=== PATIENT | male | born 1960 | race Caucasian/White ===

== ENCOUNTER 2022-02-15 11:13 | Emergency (ER) | payer OTHER, SELFPAY ==
[2022-02-15 11:29] VITALS: BP 171/87; PULSE 64; RESP 16; TEMP 36.2; O2SAT 96
--- NOTE | 2022-02-15 11:43 | ED.GENADULT ---
HPI - General Adult General Chief complaint: Wound/Laceration Stated complaint: DROVE A STAKE THROUGH HAND Time Seen by Provider: 02/15/22 11:34 History of Present Illness HPI narrative: The patient is a 61-year-old male who was blowing leaves in the yard whereby he lost his balance and fell down on metal portion of a yard aerator, resulting in a puncture wound in the center aspect of his left palm. He has no loss of motor or sensory function. no other injuries except a minor abrasion on the right elbow. Ambulatory. He is on Xarelto for possible prior stroke as well as blood pressure medications. His last tetanus was less than 10 years ago. Does have bilateral total knee arthroplasties. Related Data Home Medications Medication Instructions Recorded Confirmed clopidogrel 75 mg tablet 75 mg PO DAILY 02/15/22 02/15/22 escitalopram oxalate 10 mg tablet 10 mg PO DAILY 02/15/22 02/15/22 hydrochlorothiazide 25 mg tablet 25 mg PO DAILY 02/15/22 02/15/22 losartan 100 mg tablet 100 mg PO DAILY 02/15/22 02/15/22 rosuvastatin 40 mg tablet 40 mg PO DAILY 02/15/22 02/15/22 Allergies Allergy/AdvReac Type Severity Reaction Status Date / Time No Known Allergies Allergy Unverified 08/06/17 11:44 Review of Systems Review of Systems: All systems reviewed & are unremarkable except as noted in HPI and below Constitutional: Constitutional: Reports no additional constitutional complaints, Denies anorexia, Denies body ache(s), Denies chills, Denies excessive sweating, Denies fatigue, Denies fever(s), Denies frequent falls, Denies headache(s), Denies malaise and Denies poor appetite Eyes: Eyes: Reports no additional eye complaints, Denies blurry vision, Denies change in vision, Denies irritation, Denies itchy eyes and Denies photophobia ENT: Reports system reviewed and no additional complaints, except as documented, Reports Normal hearing present, Denies change in voice, Denies dysphagia, Denies vertigo, Denies dizziness, Denies ear discharge, Denies headache(s), Denies hearing loss, Denies hoarseness, Denies nasal congestion, Denies neck pain, Denies sinus pressure, Denies sore throat and Denies throat swelling Cardiovascular: Cardiovascular: Reports no additional cardiovascular complaints, Denies chest pain, Denies syncope, Denies rapid heart rate, Denies irregular heart rhythm, Denies leg edema, Denies dyspnea and Denies slow heart rate Respiratory: Respiratory: Reports no additional respiratory complaints, Denies cough, Denies dyspnea, Denies stridor and Denies wheezing Gastrointestinal: Gastrointestinal: Reports no additional gastrointestinal complaints, Denies abdominal pain, Denies melena, Denies hematochezia, Denies dysphagia, Denies diarrhea, Denies nausea and Denies vomiting Genitourinary: Genitourinary: Denies hematuria, Denies oliguria, Denies dysuria, Denies flank pain, Denies urinary frequency and Denies urinary urgency Musculoskeletal: Musculoskeletal: Reports no additional musculoskeletal complaints, Denies abnormal gait, Denies back pain, Denies myalgias, Denies arthralgias, Denies joint swelling, Denies limited range of motion, Denies muscle cramps, Denies muscle weakness, Denies neck pain and Denies numbness Integumentary/Breasts: Skin/Breast: Reports system reviewed and no additional complaints, except as docu, Denies breast pain, Denies change in pigmentation, Denies pruritus, Denies erythema and Reports wounds Neurologic: Reports system reviewed and no additional complaints, except as documented, Reports Normal hearing present, Denies Abnormal speech present, Denies abnormal gait, Denies confusion, Denies vertigo, Denies dizziness, Denies syncope, Denies frequent falls, Denies headache(s), Denies focal weakness, Denies numbness and Denies paresthesias Psychiatric: Psychiatric: Reports no additional psychiatric complaints and Denies confusion Endocrine: Endocrine: Reports no additional endocrine complaints, Denies cold intoleranc
[2022-02-15] MEDS: LIDOCAINE HCL 1% LOCAL INJ 10 ML VIAL (11:49)
[2022-02-15] MEDS: ACETAMINOPHEN 500 MG TABLET 1000 MG PO (11:50)
[2022-02-15] MEDS: CEPHALEXIN 500 MG CAPSULE PO (11:50)
[2022-02-15 12:40] VITALS: BP 162/77; PULSE 62; RESP 16; TEMP 36.2; O2SAT 97
== END 2022-02-15 12:42 | disposition home or self-care (01) ==
LOC: CHSED 12:19
PROVIDERS: Emergency Provider Emergency Medicine
DX: S61.412A Laceration without foreign body of left hand, initial encounter (principal); W01.118A Fall on same level from slipping, tripping and stumbling with subsequent striking against other sharp object, initial encounter; Z79.02 Long term (current) use of antithrombotics/antiplatelets
CPT/HCPCS: 12001; 99283; A9270

== ENCOUNTER 2022-02-17 09:54 | Emergency (ER) | payer OTHER, SELFPAY ==
--- NOTE | ~2022-02-17 | XR_ITS ---
EXAMINATION: XR hand LT min 3V DATE: 02/17/2022 10:53 INDICATION: Left hand laceration. TECHNIQUE: 3 views of left hand were obtained. COMPARISON: None. FINDINGS: Bone alignment is normal. No fracture. There is mild osteoarthritis of first carpometacarpa l joint, first and second metacarpophalangeal joints, and many of the interphalangeal joints. No radi opaque foreign body. IMPRESSION: 1. Mild polyarticular osteoarthritis. Reviewed, dictated and finalized at location A. GING BROKER
[2022-02-17 09:57] VITALS: BP 156/93; PULSE 71; RESP 18; TEMP 36.4; O2SAT 94
[2022-02-17 10:58] LABS: Basophils Absolute Auto 0.04 K/mm3 (0.00-0.10); Basophils Percent Auto 0.6 % (0.0-1.0); Eosinophils Absolute Auto 0.17 K/mm3 (0.02-0.50); Eosinophils Percent Auto 2.7 % (1.0-6.0); Hematocrit 40.3 % (40.0-54.0); Hemoglobin 13.9 g/dL (14.0-18.0); Immature Granulocyte Absolute 0.03 K/mm3 (0.00-0.00); Immature Granulocyte Percent A 0.5 % (0.0-0.0); Lymphocytes Absolute Auto 1.43 K/mm3 (1.10-4.50); Lymphocytes Percent Auto 22.7 % (18.0-42.0); Mean Corpuscular HGB Conc 34.5 g/dL (32.0-36.0); Mean Corpuscular Hemoglobin 28.5 pg (27.0-31.0); Mean Corpuscular Volume 82.8 fL (78.0-102.0); Mean Platelet Volume 10.1 fl (8.7-11.0); Monocytes Absolute Auto 0.57 K/mm3 (0.10-0.90); Monocytes Percent Auto 9.1 % (2.0-11.0); Neutrophils Absolute Auto 4.1 K/mm3 (1.7-7.2); Neutrophils Percent Auto 64.4 % (50.0-70.0); Platelet Count Result 177 K/mm3 (150-420); Red Blood Count 4.87 M/mm3 (4.70-6.10); Red Cell Distribution Width 13.2 % (11.6-14.4); White Blood Count 6.3 K/mm3 (4.8-10.8)
--- NOTE | 2022-02-17 11:09 | ED.GENADULT ---
HPI - General Adult General Chief complaint: Wound/Laceration Stated complaint: left hand cut swelling and sore Time Seen by Provider: 02/17/22 10:31 History of Present Illness HPI narrative: the patient is a 61-year-old male who sustained a small puncture wound in his left hand 2 days ago, in 02/15/2022. I had seen him at that time. He received Keflex prophylactic antibiotics. The wound was closed with 2 sutures. He is currently on Keflex for a total of 5 days. 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 He comes back due to concern about his wound. There is redness in the left palm which is concerning for him. No drainage. He has been taking his Keflex. Tenderness is minimal. Related Data Home Medications Medication Instructions Recorded Confirmed clopidogrel 75 mg tablet 75 mg PO DAILY 02/15/22 02/17/22 escitalopram oxalate 10 mg tablet 10 mg PO DAILY 02/15/22 02/17/22 hydrochlorothiazide 25 mg tablet 25 mg PO DAILY 02/15/22 02/17/22 losartan 100 mg tablet 100 mg PO DAILY 02/15/22 02/17/22 rosuvastatin 40 mg tablet 40 mg PO DAILY 02/15/22 02/17/22 Allergies Allergy/AdvReac Type Severity Reaction Status Date / Time No Known Allergies Allergy Unverified 08/06/17 11:44 Review of Systems Review of Systems: All systems reviewed & are unremarkable except as noted in HPI and below Constitutional: Constitutional: Reports no additional constitutional complaints, Denies anorexia, Denies body ache(s), Denies chills, Denies excessive sweating, Denies fatigue, Denies fever(s), Denies frequent falls, Denies headache(s), Denies malaise and Denies poor appetite Eyes: Eyes: Reports no additional eye complaints, Denies blurry vision, Denies change in vision, Denies irritation, Denies itchy eyes and Denies photophobia ENT: Reports system reviewed and no additional complaints, except as documented, Reports Normal hearing present, Denies change in voice, Denies dysphagia, Denies vertigo, Denies dizziness, Denies ear discharge, Denies headache(s), Denies hearing loss, Denies hoarseness, Denies nasal congestion, Denies neck pain, Denies sinus pressure, Denies sore throat and Denies throat swelling Cardiovascular: Cardiovascular: Reports no additional cardiovascular complaints, Denies chest pain, Denies syncope, Denies rapid heart rate, Denies irregular heart rhythm, Denies leg edema, Denies dyspnea and Denies slow heart rate Respiratory: Respiratory: Reports no additional respiratory complaints, Denies cough, Denies dyspnea, Denies stridor and Denies wheezing Gastrointestinal: Gastrointestinal: Reports no additional gastrointestinal complaints, Denies abdominal pain, Denies melena, Denies hematochezia, Denies dysphagia, Denies diarrhea, Denies nausea and Denies vomiting Genitourinary: Genitourinary: Denies hematuria, Denies oliguria, Denies dysuria, Denies flank pain, Denies urinary frequency and Denies urinary urgency Musculoskeletal: Musculoskeletal: Reports no additional musculoskeletal complaints, Denies abnormal gait, Denies back pain, Denies myalgias, Denies arthralgias, Denies joint swelling, Denies limited range of motion, Denies muscle cramps, Denies muscle weakness, Denies neck pain and Denies numbness Integumentary/Breasts: Skin/Breast: Reports system reviewed and no additional complaints, except as docu, Denies breast pain, Denies change in pigmentation, Denies pruritus, Reports erythema ( In the area just proximal to the laceration repair in the left hand) and Reports wounds ( in the left hand, palmar aspect, with 2 sutures present) Neurologic: Reports system reviewed and no additional complaints, except as documented, Reports Normal hearing present, Denies Abnormal speech present, Denies abnormal gait, Denies confusion, Denies vertigo, Denies dizziness, Denies syncope, D
[2022-02-17 11:11] LABS: Alanine Aminotransferase 45 U/L (16-63); Alkaline Phosphatase 72 U/L (46-116); Anion Gap 6 mmol/L (8-16); Aspartate Amino Transferase 22 U/L (15-37); Bilirubin,Total 0.5 mg/dL (0.00-1.00); Blood Urea Nitrogen 15 mg/dL (7-18); CRP 1.2 mg/dL (0.0-0.9); Calcium 8.4 mg/dL (8.5-10.1); Carbon Dioxide 31 mmol/L (21-32); Chloride 102 mmol/L (98-108); Estimated CRCL calculation 104 ml/min; Estimated Glomerular Filt Rate > 60; Glucose 140 mg/dL (70-99); Osmolality Calculated 290 mOsm/kg (285-295); Potassium 4.1 mmol/L (3.5-5.1); Sodium 139 mmol/L (136-145); Total Protein 7.3 g/dL (6.4-8.2)
[2022-02-17 11:14] LABS: Lactic Acid Reflex 0.9 mmol/L (0.4-2.0)
[2022-02-17 11:41] LABS: Erythrocyte Sedimentation Rate 8 mm/hr (0-20)
--- NOTE | 2022-02-17 12:22 | PC.NURSE ---
1150 pt resting per cot. iv infusing to right hand. no s/s infiltration. call hsieh in reach. 1200 at bedside. no needs at this time. 1230 drink to and pt. no other needs at this time. iv infusion continues . call hsieh in reach
[2022-02-17 13:15] VITALS: BP 137/82; PULSE 60; RESP 16; O2SAT 96
== END 2022-02-17 13:28 | disposition home or self-care (01) ==
PROVIDERS: Emergency Provider Emergency Medicine; PCP Internal Medicine
DX: M79.642 Pain in left hand (principal); S61.412D Laceration without foreign body of left hand, subsequent encounter; X58.XXXD Exposure to other specified factors, subsequent encounter; Z79.02 Long term (current) use of antithrombotics/antiplatelets; Z86.14 Personal history of Methicillin resistant Staphylococcus aureus infection
CPT/HCPCS: 36415; 73130; 80053; 83605; 85025; 85652; 86140; 96365; 96366; 99284; J3370

== ENCOUNTER 2023-07-25 20:41 | Observation (INO) | payer OTHER, SELFPAY ==
[2023-07-25] VITALS (16 sets, daily range): BP systolic 120–141; BP diastolic 59–84; PULSE 71–88; RESP 7–24; TEMP 37.1–37.4; O2SAT 88–97
--- NOTE | ~2023-07-25 | US_ITS ---
EXAMINATION:US venous doppler LE BI INDICATION:Right lower extremity swelling. Pulmonary embolism. TECHNIQUE: Multiple grayscale, color flow and Doppler images of the right and left lower extremity de ep venous systems were obtained and reviewed. COMPARISON:No prior studies for comparison. FINDINGS: The common femoral, superficial femoral and popliteal veins demonstrate normal respiratory variation, augmentation and compressibility. Color flow is also seen within the posterior tibial, pe roneal, greater saphenous and profunda veins. Venous reflux is visualized in the right popliteal vein . IMPRESSION: 1: No lower extremity deep venous thrombosis. Reviewed, dictated and finalized at location B.
--- NOTE | ~2023-07-25 | CT_ITS ---
CTA chest PE protocol Ordering provider: Timothy Olivares MD History: 63 years Male with . shortness of breath elevated D-dimer . Comparison: None. Technique: CT angiogram chest was performed following timed intravenous injection of contrast. Thin s lice axial images and reformatted coronal images were obtained. Three dimensional reformatted images of the chest were also obtained using a [employer] workstation. Radiation reduction technique utilized. Findings: PULMONARY ARTERIES: Possible filling defects in the subsegmental branches in the left lower lobe are noted which may indicate pulmonary embolus. Clinical correlation and follow-up advised. VISUALIZED THORACIC INLET: Normal. MEDIASTINUM: Aorta/coronary arteries: Mild atheromatous disease. Heart/other: The heart is not enlarged. Lymph nodes: Bilateral hilar lymph node the largest on the right measures 2.3 cm. Small lymph nodes a re seen in the paratracheal area the largest measures 1.3 cm. LUNGS: No pulmonary nodules or masses. No infiltrates or effusions. No pneumothorax. VISUALIZED UPPER ABDOMEN: Fatty infiltration of the liver. Otherwise, the visualized upper abdomen is normal. MUSCULOSKELETAL: Soft tissues: The superficial soft tissues are normal. Bones: Age appropriate degenerative changes of the spine. IMPRESSION: 1. Possible filling defects in the subsegmental branches in the left lower lobe are noted which may indicate pulmonary emboli. Artifacts are possible. Clinical correlation and follow-up advised. 2. Bilateral hilar lymphadenopathy. 3. Fat infiltration of the liver. Reviewed, dictated and finalized at location A. IMPRESSION: 1. Possible filling defects in the subsegmental branches in the left lower lob e are noted which may indicate pulmonary emboli. Artifacts are possible. Clinic al correlation and follow-up advised. 2. Bilateral hilar lymphadenopathy. 3. Fat infiltration of the liver.
--- NOTE | ~2023-07-25 | XR_ITS ---
XR chest 1V portable Ordering provider: Timothy Olivares MD History: 63 years Male with . Dyspnea . Comparison: None. FINDINGS: MEDIASTINUM: The cardiac silhouette is not enlarged. LUNGS: No infiltrates, effusions or pneumothorax. OTHER: No free air under the diaphragm. IMPRESSION: No acute cardiopulmonary pathology. Reviewed, dictated and finalized at location A.
--- NOTE | 2023-07-25 20:49 | ECG_ITS ---
Test Date: 2023-07-25 20:52:50 Measurements Intervals [place] Rate: 84 P: 35 IL: 193 QRS: -85 QRSD: 102 T: 62 QT: 354 QTc: 421 Interpretive Statements SINUS RHYTHM LEFT AXIS DEVIATION [QRS AXIS < -30] INCOMPLETE RIGHT BUNDLE BRANCH BLOCK [90+ ms QRS DURATION, TERMINAL R IN V1/V2, 40+ ms S IN I/aVL/V4/V5/V6] No previous ECG available for comparison Electronically Signed On 07-30-2023 10:37:07 CDT by Clive Shearer M.D.
[2023-07-25] MEDS: SODIUM CHLORIDE 0.9% IV 1,000 ML 999 ML IV CONT (20:57)
[2023-07-25 20:59] LABS: Basophils Absolute Auto 0.05 K/mm3 (0.00-0.10); Basophils Percent Auto 0.3 % (0.0-1.0); Eosinophils Absolute Auto 0.33 K/mm3 (0.02-0.50); Eosinophils Percent Auto 2.3 % (1.0-6.0); Hematocrit 39.4 % (40.0-54.0); Hemoglobin 13.1 g/dL (14.0-18.0); Immature Granulocyte Absolute 0.04 K/mm3 (0.00-0.00); Immature Granulocyte Percent A 0.3 % (0.0-0.0); Lymphocytes Absolute Auto 0.76 K/mm3 (1.10-4.50); Lymphocytes Percent Auto 5.3 % (18.0-42.0); Mean Corpuscular HGB Conc 33.2 g/dL (32-36); Mean Corpuscular Volume 84.2 fL (78.0-102.0); Mean Platelet Volume 10.1 fl (8.7-11.0); Monocytes Absolute Auto 1.04 K/mm3 (0.10-0.90); Monocytes Percent Auto 7.2 % (2.0-11.0); Neutrophils Absolute Auto 12.19 K/mm3 (1.70-7.20); Neutrophils Percent Auto 84.6 % (50.0-70.0); Platelet Count Result 192 K/mm3 (150-420); Red Blood Count 4.68 M/mm3 (4.70-6.10); Red Cell Distribution Width 13.3 % (11.6-14.4); White Blood Count 14.4 K/mm3 (4.8-10.8)
[2023-07-25] MEDS: IPRATROPIUM 0.5 MG/ALBUTEROL SULFATE 2.5 MG AMPUL.NEB 3 ML INHALATION (20:59)
[2023-07-25 21:10] LABS: Prothrombin Time 11.3 Seconds (9.50-12.1)
[2023-07-25 21:16] LABS: Lactic Acid Reflex 1.1 mmol/L (0.4-2.0)
[2023-07-25 21:17] LABS: Alanine Aminotransferase 39 U/L (16-63); Albumin Level 3.9 g/dL (3.4-5.0); Alkaline Phosphatase 67 U/L (46-116); Anion Gap 11 mmol/L (4-12); Aspartate Amino Transferase 27 U/L (15-37); Bilirubin,Total 0.8 mg/dL (0.00-1.00); Blood Urea Nitrogen 19 mg/dL (7-18); Calcium 8.5 mg/dL (8.5-10.1); Carbon Dioxide 29 mmol/L (21-32); Chloride 100 mmol/L (98-108); Estimated CRCL calculation 94 ml/min; Estimated Glomerular Filt Rate > 60; Glucose 180 mg/dL (70-99); Magnesium 1.6 mg/dL (1.8-2.4); NT Pro B Type Natriuretic Pept 148 pg/mL (0-125); Osmolality Calculated 297 mOsm/kg (285-295); Potassium 3.8 mmol/L (3.5-5.1); Sodium 140 mmol/L (136-145); Total Protein 7.2 g/dL (6.4-8.2); Troponin I 7.3 ng/L (0.00-60.4)
[2023-07-25 21:18] LABS: D Dimer 0.76 mg/L (0.19-0.50)
--- NOTE | 2023-07-25 21:45 | PC.NURSE ---
Pt brought back from CT scan and per Rik Xie tech, pt had immediate episode of vomiting p injected c IVP dye. Pt states he felt flushed and became nauseated. Orders obtained from ERP for pt symptoms, pt placed back on NC O2 at 3L as per order, noted SPO2 89% w/o O2 on.
[2023-07-25] MEDS: ONDANSETRON INJ 4 MG/2 ML VIAL IV PUSH (21:48)
[2023-07-25] MEDS: diphenhydrAMINE HCl INJ 50 MG/ML VIAL 25 MG IV PUSH (21:48)
--- NOTE | 2023-07-25 22:12 | PC.NURSE ---
Lights dimmed, pt resting, continuing to monitor, VSS on 3L NC O2. Explained to pt about wait time for reading of Xray and CT and will do another 3 hr trop level. at bedside, call hsieh at side.
[2023-07-25 22:55] LABS: Appearance Urine Clear (Clear); Bilirubin Urine Negative (Negative); Blood Urine Negative (Negative); Color Urine Yellow (Yellow); Glucose Urine UA Negative (Negative); Ketones Urine Negative (Negative); Leukocyte Esterase Ur Negative LEU/UL (Negative); Nitrate Urine Negative (Negative); Protein Urine Negative (Negative); Urobilinogen Urine 0.2 mg/dL (0.2-1.0)
[2023-07-25 22:58] LABS: Add Urine Microscopic? NO
--- NOTE | 2023-07-25 23:44 | ED.SOB ---
HPI - SOB/Dyspnea General Chief Complaint: Shortness of Breath/Dyspnea Stated Complaint: SOB Time Seen by Provider: 07/25/23 20:44 Source: patient and family Mode of arrival: ambulatory Limitations: no limitations History of Present Illness HPI Narrative: this is a 63-year-old male with a history of hypertension hyperlipidemia history of TIAs on Plavix. Presents with some acute shortness of breath that occurred earlier today and progressively gotten worse denies having any chest pain no fever chills no cough. Patient denies any nausea vomiting no abdominal pain no flank pain no hematuria or dysuria. Patient with shortness of breath initially with some O2 sats around 88% on room air. never smoker, no lower extremity calf pain or tenderness or swelling. MD elicited complaint: shortness of breath Onset (ago): hour(s) Timing: constant Severity: moderate Exacerbating factors: exertion Relieving factors: oxygen and bronchodilators Related Data Home Medications Medication Instructions Recorded Confirmed clopidogrel 75 mg tablet 75 mg PO DAILY 02/15/22 07/25/23 escitalopram oxalate 10 mg tablet 10 mg PO DAILY 02/15/22 07/25/23 hydrochlorothiazide 25 mg tablet 25 mg PO DAILY 02/15/22 07/25/23 losartan 100 mg tablet 100 mg PO DAILY 02/15/22 07/25/23 rosuvastatin 40 mg tablet 40 mg PO DAILY 02/15/22 07/25/23 Allergies Allergy/AdvReac Type Severity Reaction Status Date / Time Iodinated Contrast Media Allergy Vomiting Verified 07/25/23 22:56 Review of Systems Review of Systems: All systems reviewed & are unremarkable except as noted in HPI and below PMFSH Past Medical History Medical History HLD (hyperlipidemia) HTN (hypertension) TIA (transient ischemic attack) Family History Family History Other Diabetes mellitus Family history of arthritis Family history of congenital heart disease Social History Social History Smoking status: Never smoker Alcohol intake: current Exam Const: General: healthy appearing, no acute distress and alert Nutritional Appearance: well nourished Orientation/consciousness: patient oriented x3 Limitations: no limitations Neck: Neck: normal visual inspection, no lymphadenopathy and no meningeal signs Chest: Chest palpation & inspection: normal inspection of the chest Resp: Effort & Inspection: normal respiratory effort Auscultation: clear to auscultation bilaterally Cardio: Rate: regular rate Rhythm: regular rhythm GI: GI Palp: Yes Soft to palpation Auscultation: normal bowel sounds : General: Yes bladder normal to palpation Skin: General skin exam: normal color Rashes: no rashes Wounds: no wounds Neuro: General: patient oriented x3, moves all extremities and no meningeal signs Extrem: General: normal to inspection Psych: Mental Status: mental status grossly normal Affect: normal affect Course Course Emergency Course: patient responded with 3L of oxygen saturations improved currently at 95% on 3L. Otherwise vitals are stable blood pressure 125/68 his white cell count is 14,000 and troponins are negative x2 BNP is 148 lactic acid 1.1. Patient had an elevated D-dimer is 0.76 and subsequently had a CTA performed which showed a pulmonary embolism in the left sub segmental area with bilateral hilar lymphadenopathy. Patient is a nonsmoker never smoked. No history of heart disease. Start Xarelto 15mg 1st dose in to be administered twice daily Vital Signs Vital signs: Vital Signs Pulse Rate 85 07/25/23 20:45 Respiratory Rate 20 07/25/23 20:45 Pulse Oximetry 88 L 07/25/23 20:45 Oxygen Delivery Room Air 07/25/23 20:45 Temperature 37.4 C 07/25/23 20:46 Pulse Rate 80 07/25/23 22:31 Respiratory Rate 18 07/25/23 22:31 Blood Pressure 129/68 07/25/23 22:31 Pulse Oxi
--- NOTE | 2023-07-25 23:45 | PC.NURSE ---
ERP Dr Olivares in to speak w/ pt about CT results and need for 23 hr admit. VSS, pt remains on 3L NC O2 and pt agreeable to admit.
[2023-07-26] VITALS (12 sets, daily range): BP systolic 129–140; BP diastolic 69–76; PULSE 71–87; RESP 14–20; TEMP 36.6–37.9; O2SAT 92–98; BMI 36.7
--- NOTE | 2023-07-26 00:01 | PC.NURSE ---
Call placed to floor, spoke to foam charger Holly, will call back w/ a room number.
--- NOTE | 2023-07-26 00:02 | PC.NURSE ---
Pt to go to Rm 205. Pt updated and updated. VSS, monitor shows NSR. Pt resting comfortably.
--- NOTE | 2023-07-26 00:09 | PC.NURSE ---
ED SBAR printed and reviewed by this RN. Room is ready and waiting for pt arrival to the floor.
--- NOTE | 2023-07-26 00:51 | ADMGEN ---
This patient, Shawn Pedroza, was admitted to 2nd Floor Room 205-2. Patient/family oriented to hospital policies and general routines including ID bracelet, bed and alarms, visiting hours, pain management, procedures, bathroom and other care routines, personal items, smoking policy, room service/diet, and visiting hours. Information on how to activate the Rapid Response Team has been discussed. Patient/Family are encouraged to report perceived risks to care and to ask questions if they do not understand what they are told or what they should do.
[2023-07-26] MEDS: SODIUM CHLORIDE 0.9% IV 1,000 ML 100 ML IV CONT (01:26)
[2023-07-26] MEDS: RIVAROXABAN 15 MG TABLET PO ×2 (01:27→10:57)
--- NOTE | 2023-07-26 01:49 | PC.NURSE ---
Arrival time to unit 00:31, pt is in room w/call light w/in reach; bed in lowest position; side railsx2 for pt safety.
[2023-07-26 05:32] LABS: Basophils Absolute Auto 0.02 K/mm3 (0.00-0.10); Basophils Percent Auto 0.1 % (0.0-1.0); Eosinophils Absolute Auto 0.38 K/mm3 (0.02-0.50); Eosinophils Percent Auto 2.8 % (1.0-6.0); Hematocrit 38.9 % (40.0-54.0); Hemoglobin 12.8 g/dL (14.0-18.0); Immature Granulocyte Absolute 0.06 K/mm3 (0.00-0.00); Immature Granulocyte Percent A 0.4 % (0.0-0.0); Lymphocytes Absolute Auto 1.05 K/mm3 (1.10-4.50); Lymphocytes Percent Auto 7.8 % (18.0-42.0); Mean Corpuscular HGB Conc 32.9 g/dL (32-36); Mean Corpuscular Hemoglobin 27.8 pg (27.0-31.0); Mean Corpuscular Volume 84.6 fL (78.0-102.0); Mean Platelet Volume 10.1 fl (8.7-11.0); Monocytes Absolute Auto 1.06 K/mm3 (0.10-0.90); Monocytes Percent Auto 7.8 % (2.0-11.0); Neutrophils Absolute Auto 10.94 K/mm3 (1.70-7.20); Neutrophils Percent Auto 81.1 % (50.0-70.0); Platelet Count Result 176 K/mm3 (150-420); Red Cell Distribution Width 13.4 % (11.6-14.4); White Blood Count 13.5 K/mm3 (4.8-10.8)
[2023-07-26] MEDS: ACETAMINOPHEN 325 MG TABLET 650 MG PO ×2 (05:41→12:26)
[2023-07-26 05:45] LABS: INR 1.2; Partial Thromboplastin Time 40.7 Sec (23.9-30.70); Prothrombin Time 13.2 Seconds (9.50-12.1)
[2023-07-26] MEDS: IPRATROPIUM 0.5 MG/ALBUTEROL SULFATE 2.5 MG AMPUL.NEB 3 ML INHALATION ×2 (05:46→11:52)
[2023-07-26 05:54] LABS: Alanine Aminotransferase 34 U/L (16-63); Albumin Level 3.5 g/dL (3.4-5.0); Alkaline Phosphatase 60 U/L (46-116); Anion Gap 5 mmol/L (4-12); Aspartate Amino Transferase 25 U/L (15-37); Bilirubin,Total 0.7 mg/dL (0.00-1.00); Blood Urea Nitrogen 15 mg/dL (7-18); Calcium 8.4 mg/dL (8.5-10.1); Carbon Dioxide 35 mmol/L (21-32); Chloride 102 mmol/L (98-108); Estimated CRCL calculation 101 ml/min; Estimated Glomerular Filt Rate > 60; Glucose 123 mg/dL (70-99); Osmolality Calculated 295 mOsm/kg (285-295); Potassium 3.8 mmol/L (3.5-5.1); Sodium 142 mmol/L (136-145); Total Protein 6.7 g/dL (6.4-8.2)
--- NOTE | 2023-07-26 06:47 | PC.NURSE ---
Pt's telemetry readings are printed out w/values written on the paper in pt's paper chart.
[2023-07-26] MEDS: ROSUVASTATIN 10 MG TABLET 40 MG PO (09:31)
[2023-07-26] MEDS: LOSARTAN POTASSIUM 50 MG TABLET 100 MG PO (09:31)
[2023-07-26] MEDS: hydroCHLOROthiazide 25 MG TABLET PO (09:32)
--- NOTE | 2023-07-26 10:14 | PM.IMHP ---
H&P: HPI History of Present Illness Date/Time: 07/26/23 10:14 Chief Complaint: Dyspnea, hypoxia Narrative: this is a 63-year-old male patient admitted to the hospital after ER evaluation for sudden onset dyspnea upon awakening yesterday. Patient states that he had significant fatigue over the weekend then was able to go to work on Saturday and Saturday but yesterday on he had significant dyspnea awakening and felt ill again. He had some transient abdominal pain yesterday. no vomiting or diarrhea. Patient reports he felt worse as the day so came the emergency evaluation. In the ER he was found slightly elevated D-dimer so a CTA was performed which shows possible filling defect left subsegmental PE possible. He was started Xarelto. As his troponin was normal x2 and his proBNP was normal patient was admitted to floor with expectation titrating oxygen down and discharging on Xarelto. Unfortunately, in the morning patient began to feel worse including low-grade fever and chills. His dyspnea continued and with attempted titration down to 2 liters/minute oxygen saturations maintained at or below 90%. Nursing staff increased oxygen to 4 liters/minute where he had saturations that range 90 to 90 4%. When patient takes a deep breath he Has sudden coughing. Attempted breathing treatment but no real change in condition. Patient does have a history right lower extremity DVT in the past. He also history of TIA hypertension hyperlipidemia as well as anxiety. Clopidogrel was held due to initiating Xarelto. White blood cell count was mildly elevated at 14 slightly improved to 13 on morning labs. No source of infection noted, a urinalysis normal. Blood cultures were drawn. Transfer arrangements will be made for further evaluation. Review of Systems Review of Systems: All systems reviewed & are unremarkable except as noted in HPI and below [facility] Past Medical History Medical History (Updated 07/26/23 @ 13:37 by Hesham Ambriz APRN) Anxiety HLD (hyperlipidemia) HTN (hypertension) TIA (transient ischemic attack) Family History Family History Other Diabetes mellitus Family history of arthritis Family history of congenital heart disease Social History Social History Smoking status: Never smoker Alcohol intake: never Substance use: never Do You Feel Safe in your Home?: Yes Lack of Transportation: No Lack of Food: Never True Current Housing: I Have Housing Concerned About Future Housing: No Difficulty Paying Gas/Electric Bills: No Difficulty Paying for Meds: No Currently Unemployed: YES Education: High School Diploma/GED Difficulty w/ Childcare or Family Care: No Spiritual care concerns: Yes ([employer]; [employer]an) Meds Home Medications and Allergies Home Medications Medication Instructions Recorded Confirmed Type clopidogrel 75 mg tablet 75 mg PO DAILY 02/15/22 07/25/23 History escitalopram oxalate 10 mg tablet 10 mg PO DAILY 02/15/22 07/25/23 History hydrochlorothiazide 25 mg tablet 25 mg PO DAILY 02/15/22 07/25/23 History losartan 100 mg tablet 100 mg PO DAILY 02/15/22 07/25/23 History rosuvastatin 40 mg tablet 40 mg PO DAILY 02/15/22 07/25/23 History Allergies Allergy/AdvReac Type Severity Reaction Status Date / Time Iodinated Contrast Media Allergy Vomiting Verified 07/25/23 22:56 Vital Signs Vital Signs - 24 hr 07/25/23 20:46 07/25/23 20:46 07/25/23 20:46 Temperature 37.4 C Pulse Rate 85 85 Respiratory Rate 20 Blood Pressure 141/84 H Pulse Oximetry 88 L 94 Oxygen Delivery Room Air Nasal Cannula Oxygen Flow Rate 3 Fraction of Inspired Oxygen 07/25/23 20:45 07/25/23 20:49 07/25/23 21:00 Temperature Pulse Rate 85 85 86 Respiratory Rate 20 20 10 L Blood Pressure Pulse Oximetry 88 L 94 93 Oxygen Delivery Room Air N
[2023-07-26] MEDS: ESCITALOPRAM OXALATE 10 MG TABLET PO (10:57)
--- NOTE | 2023-07-26 14:04 | PM.TDS ---
Transfer Discharge Sum: Prov Provider Date of admission: 07/25/23 23:56 Primary care physician: Jennifer Guajardo, Admitting clinician: Eris Mariano MD Attending physician on discharge: Elijah Mariano Discharging clinician: Hesham Ambriz Anticipated date of transfer: 07/26/23 Receiving physician/facility: Dr. Henderson, Hospitalist at [facility] DS: Admitting Diagnosis Discharge Date 07/26/2023 Admitting Diagnosis Pulmonary embolus DS: Discharge Diagnosis Discharge Diagnosis (1) Acute hypoxic respiratory failure: Code(s): J96.01 - Acute respiratory failure with hypoxia Status: Acute (2) PE (pulmonary thromboembolism): Code(s): I26.99 - Other pulmonary embolism without acute cor pulmonale Status: Acute (3) HLD (hyperlipidemia): Code(s): E78.5 - Hyperlipidemia, unspecified Status: Acute (4) HTN (hypertension): Code(s): I10 - Essential (primary) hypertension Status: Acute (5) Anxiety: Code(s): F41.9 - Anxiety disorder, unspecified Status: Acute Transfer Discharge Sum: Med Medications Active and Home Medications: Home Medications clopidogrel 75 mg tablet 75 mg PO DAILY 02/15/22 [History Confirmed 07/25/23] escitalopram oxalate 10 mg tablet 10 mg PO DAILY 02/15/22 [History Confirmed 07/25/23] hydrochlorothiazide 25 mg tablet 25 mg PO DAILY 02/15/22 [History Confirmed 07/25/23] losartan 100 mg tablet 100 mg PO DAILY 02/15/22 [History Confirmed 07/25/23] rosuvastatin 40 mg tablet 40 mg PO DAILY 02/15/22 [History Confirmed 07/25/23] Active Medications Acetaminophen (Acetaminophen 325 Mg Tablet) 650 mg PO Q4H PRN PRN Reason: Mild Pain (1-3) or Fever Last Admin: 07/26/23 12:26 Dose: 650 mg Albuterol/Ipratropium (Ipratropium 0.5 Mg/Albuterol Sulfate 2.5 Mg Ampul.Neb 3 Ml) 3 ml INHALATION Q6HRT PRN PRN Reason: Shortness Of Breath Last Admin: 07/26/23 11:52 Dose: 3 ml Bisacodyl (Bisacodyl 5 Mg Tablet Ec) 5 mg PO DAILY PRN PRN Reason: Constipation Escitalopram Oxalate (Escitalopram Oxalate 10 Mg Tablet) 10 mg PO DAILY [facility] Last Admin: 07/26/23 10:57 Dose: 10 mg Hydrochlorothiazide (Hydrochlorothiazide 25 Mg Tablet) 25 mg PO DAILY [facility] Last Admin: 07/26/23 09:32 Dose: 25 mg Sodium Chloride (Normal Saline Iv) 1,000 mls @ 100 mls/hr IV CONT .Q10H [facility] Last Infusion: 07/26/23 11:36 Dose: Infused Losartan Potassium (Losartan Potassium 50 Mg Tablet) 100 mg PO DAILY [facility] Stop: 08/25/23 08:59 Last Admin: 07/26/23 09:31 Dose: 100 mg Ondansetron HCl (Ondansetron Inj 4 Mg/2 Ml Vial) 4 mg IV PUSH Q6H PRN PRN Reason: Nausea And Vomiting Rivaroxaban (Rivaroxaban 15 Mg Tablet) 15 mg PO Q12HR [facility] Last Admin: 07/26/23 10:57 Dose: 15 mg Rosuvastatin Calcium (Rosuvastatin 10 Mg Tablet) 40 mg PO DAILY [facility] Last Admin: 07/26/23 09:31 Dose: 40 mg Transfer Discharge Sum: Hosp Hospital Course Hospital course: Shawn Pedroza is a 63 year old male admitted for pulmonary embolus with new onset oxygen demand. Patient began to have fever as well as worsening oxygenation. No infectious source identified. Blood cultures drawn. Discussed with patient that he will need an echocardiogram and further testing to try to determine why he is requiring extra oxygen that we cannot obtain at this facility at this time. Patient requesting transfer to [facility]. Contacted [facility] transfer center and they stated that [facility] also cannot obtain echocardiogram on the weekend. Patient okay with any facility. Hospitalist from [facility] agreed to transfer due to the need for echocardiogram and potential consult if services such as Cardiology pulmonology, heme Onc. COVID test in process and results required bed at receiving facility. Covid negative and Transfer Center notified. Time Spent with Patient Time attestation: Total time spent providing and/or coordinating transfer services: 45 ninoska
[2023-07-26 14:08] LABS: Base Excess ABG 3.6 mmol/L (0-2); HCO3 ABG 27.9 mmol/L (23-29); Oxygen Content ABG 17.3 %vol (16.0-22.0); Oxygen Saturation ABG 93.5 % (95-97); Oxyhemoglobin 92.9 % (94-100); PO2 ABG 66.8 mmHg (80-90); Total Hemoglobin 13.2 g/dL (12.0-18.0); pH ABG 7.45 (7.35-7.45)
[2023-07-26 14:10] LABS: Device NASAL CANNULA; Modified Allen's Test Pass; Site Drawn LEFT RADIAL
[2023-07-26 14:49] LABS: Influenza A QL RT-PCR Negative (Negative); Influenza B QL RT-PCR Negative (Negative); RSV RNA, RT-PCR Negative (Negative); SARS-CoV-2 RNA PCR Negative (Negative)
--- NOTE | 2023-07-26 15:55 | PC.NURSE ---
Report called to claudia Prado at [facility]. All questions answered.
--- NOTE | 2023-07-26 16:45 | PC.NURSE ---
Report given to [facility]. Discharge on stretcher with O2 at 4l.
== END 2023-07-26 16:45 | disposition short-term general hospital (02) ==
LOC: CHSED 23:56 → CHS2ND 07-26 00:11
PROVIDERS: Nurse Practitioner; Admitting Provider Internal Medicine; Emergency Provider Emergency Medicine; PCP Internal Medicine; Visit Provider Internal Medicine
DX: J96.01 Acute respiratory failure with hypoxia (principal); I26.99 Other pulmonary embolism without acute cor pulmonale; I10 Essential (primary) hypertension; E78.5 Hyperlipidemia, unspecified; F41.9 Anxiety disorder, unspecified; Z86.73 Personal history of transient ischemic attack (TIA), and cerebral infarction without residual deficits; Z79.02 Long term (current) use of antithrombotics/antiplatelets; Z20.822 Contact with and (suspected) exposure to COVID-19
CPT/HCPCS: 36415; 36600; 71045; 71275; 80053; 81003; 82805; 83605; 83735; 83880; 84484; 85025; 85380; 85610; 85730; 87040; 87637; 93005; 93970; 94640; 96360; 96361; 96374; 96375; 99285; A9270; G0378; J1200; J2405; J7030; Q9967

== ENCOUNTER 2024-08-14 15:42 | Outpatient (RCR) | payer OTHER, SELFPAY ==
--- NOTE | 2024-08-14 17:03 | PTOPEVDC ---
Assessment and note entered by Seda Bhatia, [facility] Thank you for referring Shawn Pedroza to [facility].? An evaluation has been completed. No further treatment is needed. Evaluation Information Assessment Status Evaluation Other ICD-10 Condition Codes ( M75.21, M19.011, M75.121, M75.41, M25.311, M75.111 PT) Onset 07/30/24 Subjective Information Pt reports that he tore his R RC, but there was no trauma. Pt reports that he is getting a R/C repair in October. Pt denies having pain at the moment. Pt reports that he has pain at night. Pt reports that the pain is worse when pulling towards him. 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 Reported Pain Level Pain Score 0: Self Report Assessment PT Clinical Summary Shawn is a 64 y/o male presenting to skilled PT for preop R/C repair scheduled for October. Pt has minimal deficits in R shoulder abd, ER, and flexion strength. Pt has slight deficits in R shoulder ROM. Pt also has a low perceived disability. Educated and reviewed an independent HEP and pt verbalized understanding. Plan of Care PT Services Indicated No Treatment Frequency and Eval and discharge to independent HEP Duration
--- NOTE | 2024-08-14 17:03 | OPREHPOC ---
Outpatient Therapy Plan of Care This is a Multidisciplinary Plan of Care that may contain components documented by all disciplines (PT, OT, and ST.) PT Goal 1 Goal / Goal Update Pt demonstrates and verbalize understanding of HEP Target Visit 1 Progress Met
--- NOTE | 2024-08-14 17:04 | PCPTNOTE ---
Observed OP PT evaluation performed by Seda Bhatia, SPT. Reviewed documentation and is correct. [employer].
== END 2024-08-14 20:00 | disposition home or self-care (01) ==
LOC: CHSPT 15:42
PROVIDERS: Visit Provider Orthopaedic Surgery
DX: M76.21 Iliac crest spur, right hip (principal); M75.121 Complete rotator cuff tear or rupture of right shoulder, not specified as traumatic; M19.011 Primary osteoarthritis, right shoulder; M75.41 Impingement syndrome of right shoulder; M25.311 Other instability, right shoulder; M75.111 Incomplete rotator cuff tear or rupture of right shoulder, not specified as traumatic
CPT/HCPCS: 97110; 97161